=== PATIENT | male | born 1990 | race Caucasian/White ===

== ENCOUNTER 2017-04-03 23:48 | Emergency (ER) | payer OTHER ==
[~2017-04-03] VITALS: Ht 188 cm; Wt 86.4 kg
[2017-04-03 23:54] VITALS: BP 131/65; PULSE 90; RESP 16; O2SAT 100
--- NOTE | 2017-04-04 00:57 | ED.REPORT ---
HPI-Dental/Mouth Prob Date of Service Apr 04, 2017 ED Provider: Doc,Ed MD Pt is an otherwise healthy 26 year old male who presents to the ED complaining of left lower jaw pain onset 2 days ago. He c/o associated difficulty opening mouth, and mouth swelling. He denies any other symptoms. Pt reports that the swelling has decreased since onset. Nursing Notes Stated Complaint: JAW PAIN Chief Complaint: Dental Nursing Notes Reviewed: Yes Allergies: Coded Allergies: No Known Allergies (Unverified , 04/03/17) General Time Seen by MD: 00:57 Chief Complaint Other (Jaw pain) Hx Obtained From: Patient Arrived By: Walk-in Onset Occurred: 2 days ago Symptom Duration: Since onset Quality: Painful Severity: Current: Moderate Severity: Maximum: Moderate Recent Healthcare: No recent doctor visit, No recent hospitalization Similar Sx Previous: No Past Medical History Past Medical History Denies - healthy Past Surgical History Denies Smoking History Unknown if Ever Smoker Social History Denies Ambulatory Status Independent Review of Systems + Jaw swelling + Difficulty opening mouth Constitutional: Denies: Fever Ears / Nose / Throat: Reports: Mouth pain Complete sys rev & neg: except as marked. Physical Exam Initial Vital Signs Vital Signs (First) Date Time Temp Pulse Resp B/P Pulse Ox O2 Delivery O2 Flow Rate FiO2 04/03/17 23:54 37.1 90 16 131/65 100 Room Air Initial VS: Reviewed Head / Eyes: Atraumatic, Normocephalic Respiratory: Breath sounds normal, Clear to auscultation, No respiratory distress Cardiovascular: Regular rate & rhythm, Heart sounds normal, Intact distal pulses Abdomen / GI: Soft, Non-tender Extremities: Vascular intact, Neuro intact Skin: Warm, Dry, No cyanosis Neurologic: Alert, Oriented, Nonfocal Psychiatric: Mood/affect normal, Behavior normal ENT: Atraumatic, Airway patent Submandibular lymph node, dental infarct. No stridor, trismus, or drooling. Buccal cellulitis, mild. Neck: Atraumatic, Full range of motion General/Constitutional: Awake, Alert, Cooperative Re-Eval/Medical Decision Med Decision/Clinical Course Patient has pain with opening his jaw however he has no true trismus. He can open his jaw widely. There is no evidence of an abscess. He does have buccal cellulitis and a submandibular lymph node which argues for infection. He received Unasyn and dexamethasone and felt better. I will place him on Augmentin and have very close outpatient follow-up. Short course of opiates provided for pain with routine opiate warnings. Source of Hx: Old records Re-Evaluation/Progress : Time of Eval: 01:10 Re-Evaluation/Progress Note: Pt rechecked. Informed pt of plan for discharge. Pt understands and agrees with plan for discharge. F/U instructions and RTER warnings given. All questions addressed. Counseled Regarding: Diagnosis, Need for follow-up, When/why to return to ED Discharge & Departure Primary Impression: Cellulitis of buccal space of mouth Additional Impression: Lymphadenopathy Disposition: Home Discharge Condition All VS Reviewed: Yes Condition: Stable Patient Instructions: Cellulitis (ED), Lymphadenopathy (ED) Additional Instructions: Take Augmentin 2x for 7 days. [place] 1-2 every 6 hours as needed[address] not drive or drink alcohol or consume acetaminophen while taking [place]. Call your dentist tomorrow for a follow-up appointment. Return to the Emergency Department if you have any problems, difficulty opening your mouth, or worsening swelling. Referrals: [facility] Scribe Attestation Portions of this note were transcribed by Lourdes Clay. I, Dr. Pink personally performed the history, physical exam and medical decision-making; I reviewed and confirmed the accuracy of the information in the transcribed note. Signed by : Kana Ribera, 04/04/17 and 02:30. copies to: [facility] Julio Cesar Pink DO Apr 04, 2017 00:57 Lourdes Licea Apr 04, 2017 01:06
[2017-04-04] MEDS ORDERED: _HYDROcodone/APAP 5-325 mg Tablet PO PRN (01:10)
[2017-04-04] MEDS ORDERED: Dexamethasone 10 mg/mL Inj IVPUSH ONE (01:10)
[2017-04-04] MEDS ORDERED: Ampicillin-Sulbactam Inj 3,000 MG in 0.9% Sodium Chloride 100 ML IV ONE (01:10)
[2017-04-04 02:07] VITALS: BP 129/70; PULSE 80; RESP 18; O2SAT 98
[2017-04-04] MEDS ORDERED: Sodium Chloride LOK Flush 10 mL Syringe IVFLUSH SCH (08:30)
== END 2017-04-04 02:08 | disposition home or self-care (01) ==
LOC: SED 23:48
DX: K12.2 Cellulitis and abscess of mouth (principal); R59.1 Generalized enlarged lymph nodes
CPT/HCPCS: 96365; 96375; 99284; J0295; J1100